=== PATIENT | female | born 1980 | race Asian ===

== ENCOUNTER 2022-01-11 16:02 | Inpatient (IN) ==
[2022-01-11 16:53] LABS: Hematocrit 35 % (35-47); Hemoglobin 11.4 g/dL (12.0-16.0); Mean Corpuscular HGB Conc 33 g/dL (31-36); Mean Corpuscular Hemoglobin 28 pg (27-31); Mean Corpuscular Volume 86 fL (80-97); Mean Platelet Volume 9.8 fL (7.4-10.4); Platelet Count 146 10^3/uL (150-450); Red Blood Count 4.03 10^6 /uL (3.70-4.87); Red Cell Distribution Width 14 % (10-15); White Blood Count 7.8 10^3/uL (3.5-10.8)
[2022-01-11] MEDS ORDERED: Penicillin G Potassium IV 5,000,000 UNITS in NS 0.9% 100 ml BAG 100 ML IVPB ONE (17:02)
[2022-01-11] MEDS ORDERED: Lactated Ringers 1000 ml BAG 1,000 ML IV ONE (17:02)
[2022-01-11] MEDS ORDERED: Buffered Lidocaine 1% SYRIN 1 ml INTRADERM ONE ×2 (17:02→17:29)
[2022-01-11 17:19] LABS: Urine Benzodiazepine Screen None Detected (None Detect); Urine Opiates Screen None Detected (None Detect)
[2022-01-11] MEDS ORDERED: ceFOXitin 2 GM IVPREMIX 2 GM/50 ML BAG ONE (17:19)
[2022-01-11] MEDS ORDERED: ceFOXitin 2 GM IVPREMIX 2 GM/50 ML BAG IVPB ONE (17:19)
[2022-01-11] MEDS ORDERED: Morphine PF AMP (0.5MG/ML) 5 MG/10 ML AMP ONE (17:24)
[2022-01-11] MEDS ORDERED: Naloxone 0.4 mg VIAL 0.4 mg/ml 1 ml VIAL IV PRN (17:29)
[2022-01-11] MEDS ORDERED: Metoclopramide 5 MG/ML VIAL (10 mg) IV PRN (17:29)
[2022-01-11] MEDS ORDERED: Naloxone 4 mg VIAL (10 ml) 2 MG in NS 0.9% 250 ml 250 ML IV PRN (17:29)
[2022-01-11] MEDS ORDERED: Ondansetron 4 mg VIAL 2 MG/ML 2 ml VIAL IV PRN ×2 (17:29→19:42)
[2022-01-11] MEDS ORDERED: Sodium Citrate/Citric Acid LIQ 15 ML UDC PO ONE (17:29)
[2022-01-11] MEDS ORDERED: EPHEDrine (Pressors) 50 MG/ML VIAL ONE (17:45)
[2022-01-11] MEDS ORDERED: Lactated Ringers 1000 ml BAG 1,000 ML IV SCH ×3 (18:00→19:00)
[2022-01-11] MEDS ORDERED: Penicillin G Potassium IV 3,000,000 UNITS in NS 0.9% 100 ml BAG 100 ML IVPB SCH (18:00)
[2022-01-11 18:16] LABS: Urine Appearance Clear; Urine Bilirubin Negative (Negative); Urine Blood 2+ (Negative); Urine Color Yellow; Urine Glucose Negative (Negative); Urine Ketones 1+ (Negative); Urine Nitrite Negative (Negative); Urine Protein Negative (Negative); Urine Specific Gravity 1.014 (1.002-1.030); Urine Urobilinogen Negative (Negative)
[2022-01-11 18:25] LABS: Urine Bacteria 1+ (Absent); Urine Red Blood Cell 3+(>10/hpf) (Absent); Urine Squamous Epithelial Cell Present (Absent); Urine White Blood Cell Trace(0-5/hpf) (Absent)
[2022-01-11] MEDS ORDERED: Oxytocin 10 UNITS/ML 1 ML VIAL ONE (18:45)
[2022-01-11] MEDS ORDERED: Dexamethasone IV 4 MG/ML VIAL 1 ml VIAL ONE (18:45)
[2022-01-11] MEDS ORDERED: Metoclopramide 5 MG/ML VIAL (10 mg) ONE (18:45)
[2022-01-11] MEDS ORDERED: Ondansetron 4 mg VIAL 2 MG/ML 2 ml VIAL ONE (18:45)
[2022-01-11] MEDS ORDERED: Dibucaine 1% OINT 28.35 GM TUBE PR PRN (18:53)
[2022-01-11] MEDS ORDERED: Witch Hazel PAD JAR TOPICAL PRN (18:53)
[2022-01-11] MEDS ORDERED: Glycerin ADULT 2.4 gm SUPP PR PRN (18:53)
[2022-01-11] MEDS ORDERED: Oxytocin in LR 20 UNITS/1,000 ML BAG IVPB SCH (19:00)
[2022-01-12 06:44] LABS: ABS Lymphocytes 0.5 10^3/ul (1.0-4.8); ABS Neutrophils 10.6 10^3/ul (1.5-7.7); Hematocrit 25 % (35-47); Hemoglobin 8.2 g/dL (12.0-16.0); Lymphocyte % 4.3 %; Mean Corpuscular HGB Conc 33 g/dL (31-36); Mean Corpuscular Hemoglobin 28 pg (27-31); Mean Corpuscular Volume 86 fL (80-97); Mean Platelet Volume 8.9 fL (7.4-10.4); Platelet Count 115 10^3/uL (150-450); Red Cell Distribution Width 14 % (10-15); White Blood Count 12.2 10^3/uL (3.5-10.8)
[2022-01-12] MEDS: HYDROXYCHLOROQUINE PO SCH (13:35)
[2022-01-12] MEDS: HYDROXYCHLOROQUINE 200 MG PO SCH (21:15)
[2022-01-13] MEDS: HYDROXYCHLOROQUINE 200 MG PO SCH (20:42)
[2022-01-14 09:59] VITALS: BP 94/61
== END 2022-01-14 11:30 | disposition home or self-care (01) | DRG 540 ==
LOC: MCHOBOUT 16:02 → MCHOB 16:58
PROVIDERS: ADMIT Obstetrics & Gynecology; ATTEND Obstetrics & Gynecology